=== PATIENT | male | born 1970 | race Caucasian/White ===

== ENCOUNTER 2019-09-23 02:32 | Emergency (ER) | payer BC ==
--- NOTE | 2019-09-23 09:28 | RAD ---
CHEST TWO VIEWS: HISTORY: Trauma. FINDINGS: The lung doty are clear. No infiltrate. Heart and mediastinum are unremarkable. IMPRESSION: No acute process. POS: [facility]
--- NOTE | 2019-09-23 09:29 | RAD ---
LEFT SHOULDER THREE VIEWS: HISTORY: Shoulder pain. FINDINGS: No fracture or dislocation. AC joint normally aligned. IMPRESSION: No acute process. POS: AGW
--- NOTE | 2019-09-23 09:30 | RAD ---
RIGHT FOOT THREE VIEWS: HISTORY: Trauma and pain. FINDINGS: The tarsals appear normally aligned. The metatarsals and phalanges are intact. IMPRESSION: No acute abnormality identified. POS: AGW
== END 2019-09-23 04:20 | disposition home or self-care (01) ==
LOC: MADERS 02:32
DX: S43.402A Unspecified sprain of left shoulder joint, initial encounter (principal); S90.31XA Contusion of right foot, initial encounter; E78.5 Hyperlipidemia, unspecified; I10 Essential (primary) hypertension; F17.220 Nicotine dependence, chewing tobacco, uncomplicated; X58.XXXA Exposure to other specified factors, initial encounter
CPT/HCPCS: 71046

== ENCOUNTER 2024-07-02 13:14 | Outpatient (CLI) | payer BC | END 2024-07-02 13:15 | disposition home or self-care (01) | LOC: MADRAD 13:14 | PROVIDERS: ATTEND Physician Assistant | DX: K59.00 Constipation, unspecified (principal) | CPT/HCPCS: 74018 ==

== ENCOUNTER 2025-05-27 12:43 | Outpatient (CLI) | payer BC ==
[2025-05-27 13:29] LABS: ALT (SGPT) 30 U/L (Less than 45); AST (SGOT) 24 U/L (11-34); Albumin 5.2 g/dL (3.1-4.5); Alkaline Phosphatase 17 U/L (40-110); Anion Gap 21 mmol/L (10-20); BUN (Urea Nitrogen) 20 mg/dL (8.4-25.7); Bilirubin, Total 0.7 mg/dL (0.3-1.2); Calc. Creatinine Clearance 0 mL/min (70-130); Calcium 10.2 mg/dL (7.8-10.44); Carbon Dioxide 21 mmol/L (22-29); Cardiac Risk 3.2 (Less than 4.5); Chloride 102 mmol/L (98-107); Cholesterol 204 mg/dl (< 200 Desired); Globulin 2.3 g/dL (2.4-3.5); Glucose 131 mg/dL (70-105); HDL Cholesterol 63 mg/dL (>60 Neg Risk); LDL Cholesterol, Calculated 110 mg/dL; Potassium 4.1 mmol/L (3.5-5.1); Sodium 140 mmol/L (136-145); Triglycerides 153 mg/dL (Less than 150)
[2025-05-28 11:05] LABS: EliA Celiac New Method **** NEW METHOD ****; Gliadin IgA Ab, Deamidated 1.2 EliAU/mL (<7 Negative); Gliadin IgG Ab, Deamidated Less than 0.6 EliAU/mL (<7 Negative)
== END 2025-05-27 12:44 | disposition home or self-care (01) ==
LOC: MADLAB 12:43
PROVIDERS: ATTEND Internal Medicine Endocrinology, Diabetes & Metabolism
DX: E11.65 Type 2 diabetes mellitus with hyperglycemia (principal); R97.20 Elevated prostate specific antigen [PSA]
CPT/HCPCS: 36415; 80053; 80061; 82043; 83036; 83516; 84207; 84630; G0103